=== PATIENT | male | born 1950 | race Caucasian/White ===

== ENCOUNTER 2020-08-07 01:49 | Outpatient (CLI) | payer OTHER, SELFPAY ==
[2020-08-11 15:52] LABS: Patient Race White; SARS-CoV-2 RNA Undetected (Undetected); SARS-CoV-2 Specimen Source Nasal
== END 2020-08-07 02:09 ==
PROVIDERS: PCP Nurse Practitioner Gerontology; Visit Provider Nurse Practitioner Primary Care
DX: J06.9 Acute upper respiratory infection, unspecified (principal)
CPT/HCPCS: U0003